=== PATIENT | female | born 1985 | race Caucasian/White ===

== ENCOUNTER 2018-05-10 14:42 | Emergency (ER) | payer SELFPAY ==
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
[2018-05-10] MEDS ORDERED: Silver Sulfadiazine 1% Crm 50 GM Tube TOP ONE (15:08)
== END 2018-05-10 15:45 | disposition home or self-care (01) ==
LOC: MW.ED 14:42
DX: T21.12XA Burn of first degree of abdominal wall, initial encounter (principal); I10 Essential (primary) hypertension; X12.XXXA Contact with other hot fluids, initial encounter; Z91.018 Allergy to other foods; Z91.040 Latex allergy status; Z91.012 Allergy to eggs
CPT/HCPCS: 16000; 99283; A9270